=== PATIENT | male | born 1970 | race Caucasian/White ===

== ENCOUNTER 2017-08-26 18:53 | Emergency (ER) | payer BC ==
[2017-08-26 19:06] VITALS: BP 126/75; PULSE 73; TEMP 98.3; BMI 32.8
--- NOTE | 2017-08-26 20:58 | PDOC ---
History of Present Illness - General Chief Complaint: Puncture Wound Stated Complaint: WOUND Time Seen by Provider: 08/26/17 20:26 History Source: Patient Exam Limitations: No Limitations - History of Present Illness Initial Comments: 08/26/17 20:50 08/26/17 20:54 Chief complaint: Stepped on nail left foot puncture wound History of present illness: Patient is a 47-year-old male with no significant medical history here today due to having a puncture wound on his left plantar distal foot after stepping on a nail today with his work boots. Patient is not up-to-date with his tetanus. Patient went home showered and washed the area thoroughly. Patient has slight tenderness to area. Patient was able to take the nail at with any complications. Patient denies any numbness of his foot. Patient is able to move his foot at ankle and all toes without difficulty. 08/26/17 21:57 Occurred: reports: this afternoon Severity: reports: mild Pain Location: reports: lower extremity (LEFT PLANTAR DISTAL FOOT PUNCTURE WOUND FROM NAIL) Method of Injury: Yes: direct blow (BY A NAIL ) Modifying Factors: improves with: None Loss of Consciousness: no loss of consciousness Associated Symptoms (Fall): denies symptoms Past History - Past Medical History Allergies/Adverse Reactions: Allergies Allergy/AdvReac Type Severity Reaction Status Date / Time No Known Allergies Allergy Verified 08/26/17 19:05 Home Medications: Ambulatory Orders Cephalexin Monohydrate [Keflex -] 500 mg PO Q6H #27 capsule 08/26/17 Other medical history: DENIES. - Suicide/Smoking/Psychosocial Hx Smoking History: Never smoked Hx Alcohol Use: No Drug/Substance Use Hx: No Substance Use Type: None Review of Systems - Review of Systems Able to Perform ROS?: Yes Constitutional: No: Symptoms Reported HEENTM: No: Symptoms Reported Respiratory: No: Symptoms reported Cardiac (ROS): No: Symptoms Reported ABD/GI: No: Symptoms Reported : No: Symptoms Reported Musculoskeletal: Yes: Joint Pain (LEFT PLANTAR FOOT DISTAL ASPECT N). No: Joint Swelling Integumentary: Yes: Other (PUNCTURE WOUND LEFT PLANTAR FOOD ) Neurological: No: Symptoms reported *Physical Exam - Vital Signs Last Vital Signs Temp Pulse Resp BP Pulse Ox 98.3 F 73 18 126/75 99 08/26/17 19:03 08/26/17 19:03 08/26/17 19:03 08/26/17 19:03 08/26/17 19:03 - Physical Exam General Appearance: Yes: Appropriately Dressed Respiratory/Chest: positive: Lungs Clear, Normal Breath Sounds Cardiovascular: positive: Regular Rhythm, Regular Rate, S1, S2 Vascular Pulses: Doralis-Pedis (L): 4+ Extremity: positive: Normal Capillary Refill, Normal Range of Motion (LEFT FOOT AND ALL TOES ), Tender (LEFT DISTAL PLANTAR FOOT ) Integumentary: positive: Other (PUNCTURE WOUND PIN POINT SIZE LEFT PLANTAR FOOT NO SURROUNDING ERYTHEMA OR EDEMA ) Neurologic: positive: Normal Response, Motor Strength 5/5 (LEFT FOOT/TOES ), Respond to painful stimul, Responsive. negative: Numbness, Sensory Deficit ( LEFT FOOT ) Medical Decision Making - Medical Decision Making 08/26/17 20:58 Patient is a 47-year-old male with no significant medical history here today due to having a puncture wound on his left plantar distal foot after stepping on a nail today with his work boots. Patient is not up-to-date with his tetanus. Patient went home showered and washed the area thoroughly. Patient has slight tenderness to area. Patient was able to take the nail at with any complications. Patient denies any numbness of his foot. Patient is able to move his foot at ankle and all toes without difficulty. PUNCTURE wound left foot nail PLAN: X-ray left foot no marylin abnormality noted tdap 0.5 ML IM NOW keflex 500 mg po now than every 6 hours for 7 days 08/26/17 21:55 08/26/17 21:58 08/26/17 21:59 *DC/Admit/Observation/Transfer Diagnosis at time of Disposition: Puncture wound of foot, left Qualifiers: Encounter type: initial encounter Qualified Code(s): S91.332A - Puncture wound without foreign body, left foot, initial encounter; S91.332A - Puncture wound without foreign body, left foot, initial encounter - Discharge Dispostion Disposition: HOME Condition at time of disposition: Stable - Patient Instructions Additional Instructions: Cleanse left foot wound daily cover with Band-Aid except at night when sleeping until healed Return to emergency room if any redness around wound or discharge from wound or increased pain You may take ibuprofen as needed as directed by javascript application developer for pain Today your tetanus diphtheria and pertussis vaccine was updated Follow-up with your primary care provider within the next couple of days Patient voiced understanding of discharge instructions and all questions were answered Plan thank you for choosing [facility] emergency room for your medical care today
[2017-08-26] MEDS ORDERED: DIPHTH,PERTUSS(ACELL),TET 0.5 ML DISP.SYRIN IM ONE (21:03)
[2017-08-26] MEDS ORDERED: CEPHALEXIN MONOHYDRATE 500 MG CAPSULE (UD) PO ONE (21:56)
[2017-08-26] MEDS ORDERED: CEPHALEXIN MONOHYDRATE 500 MG CAPSULE (UD) ONE (21:58)
== END 2017-08-26 22:01 | disposition home or self-care (01) ==
LOC: JERFT 18:53
PROC: 3E0234Z Introduction of Serum, Toxoid and Vaccine into Muscle, Percutaneous Approach (ICD-10-PCS; principal; 2017-08-26)
DX: S91.332A Puncture wound without foreign body, left foot, initial encounter (principal); W45.0XXA Nail entering through skin, initial encounter; Y93.9 Activity, unspecified; Y92.9 Unspecified place or not applicable
CPT/HCPCS: 73630-TC-LT; 90715; 99281-25

== ENCOUNTER 2018-08-09 11:23 | Day surgery (SDC) | payer OTHER, BC ==
[2018-08-09 11:39] VITALS: BMI 31.5
--- NOTE | 2018-08-09 12:53 | PDOC ---
History of Present Illness <Shaunna Bill - Last Filed: 08/09/18 13:29> - General History Source: Patient Exam Limitations: No Limitations - History of Present Illness Initial Comments: 08/09/18 13:31 Bigg Rivas is a RHD 48 year old male, with no significant past medical history , who presents to the emergency department today with a laceration on the left forearm that occured this morning. The patient explains that he accidentally cut his left forearm while working with a new chisel. The patient reports that the laceration was initially squirting out blood, so he immediately wrapped the laceration and presented to the ED. The patient notes that his most recent tetanus shot was last year. Denies any numbness or tingling. Denies any other injuries. Denies lightheadedness, dizziness. Allergies: NKDA PCP: Dr. Parikh <Sakina Stark - Last Filed: 08/09/18 13:33> - General Chief Complaint: Laceration Stated Complaint: LACERATION Time Seen by Provider: 08/09/18 11:48 Past History <Shaunna Bill - Last Filed: 08/09/18 13:29> - Past Medical History COPD: No - Suicide/Smoking/Psychosocial Hx Smoking History: Never smoked Hx Alcohol Use: No Drug/Substance Use Hx: No Substance Use Type: None <Sakina Stark - Last Filed: 08/09/18 13:33> - Past Medical History Allergies/Adverse Reactions: Allergies Allergy/AdvReac Type Severity Reaction Status Date / Time No Known Allergies Allergy Verified 08/09/18 11:39 Home Medications: Ambulatory Orders NK [No Known Home Medication] 08/09/18 Review of Systems - Review of Systems Able to Perform ROS?: Yes Comments:: 08/09/18 12:50 Constitutional: no fevers or chills. HEENT: no headache or dizziness. CVS: no cp or syncope. Resp: no sob. MUSCULOSKELETAL: No joint pain and swelling. No neck or back pain. SKIN: +laceration on the left forearm. +wound. no discharge, no rash. Hematologic: +bleeding NEUROLOGIC: No headache, dizziness, LOC or altered mental status. No weakness, numbness or tingling. All other systems reviewed and negative, or as documented in HPI. <Sakina Stark - Last Filed: 08/09/18 13:33> *Physical Exam - Vital Signs Last Vital Signs Temp Pulse Resp BP Pulse Ox 98.0 F 84 17 125/74 98 08/09/18 11:28 08/09/18 13:17 08/09/18 13:17 08/09/18 13:17 08/09/18 13:17 <Shaunna Bill - Last Filed: 08/09/18 13:29> - Vital Signs Last Vital Signs Temp Pulse Resp BP Pulse Ox 98.0 F 76 18 131/83 97 08/09/18 11:28 08/09/18 11:28 08/09/18 11:28 08/09/18 11:28 08/09/18 11:28 - Physical Exam Comments: 08/09/18 12:49 General: NAD, well appearing Vascular: 2+ DP pulses symmetric and equal. Back: no midline tenderness, no stepoffs, FROM Focused MSK/Neuro Exam notable for soft compartments, Cap refill <2 sec. Proximal and distal strength 5/5, obstetrical nurse strength 5/5 - equal and symmetric. FROM. Sensation grossly intact to light touch. Skin: color normal color, warm and well perfused. +1.5cm linear laceration to volar aspect of distal forearm, +pulsatile and squirting blood from site of bleed. <Sakina Stark - Last Filed: 08/09/18 13:33> ED Treatment Course - LABORATORY CBC & Chemistry Diagram: 08/09/18 13:00 08/09/18 13:00 - ADDITIONAL ORDERS Additional order review: 08/09/18 13:00 RBC 5.00 MCV 89.3 MCHC 34.4 RDW 13.2 MPV 9.6 Neutrophils % 57.7 Lymphocytes % 33.6 Monocytes % 5.2 Eosinophils % 2.9 Basophils % 0.6 <Shaunna Bill - Last Filed: 08/09/18 13:29> - LABORATORY CBC & Chemistry Diagram: 08/09/18 13:00 08/09/18 13:00 <Sakina Stark - Last Filed: 08/09/18 13:33> Medical Decision Making - Medical Decision Making 08/09/18 12:48 MDM: Evelyn 48 YOM no medical history presenting with left forearm laceration s/ p injury with chisel. Tdap up to date. Bleeding NOT controlled. No weakness or paresthesias. tdap up to date. no pain currently wound cleaned and evaluated, with radial arterial bleeding suspected. with squiriting and pulsatile bleed. HD stable, VS wnl and reviewed. compression dressings placed to slow down bleed, but not able to control when wounds opened up. NVI. basic labs including CBC and CMP obtained, PIV placed. txs obtained called and admit to Dr Wooten, plastics/hand consultation, will come to evaluate of complicated forearm laceration involving radial artery. to OR for operative fixation, ASU admit put in. 08/09/18 13:31 08/09/18 13:32 <Sakina Stark - Last Filed: 08/09/18 13:33> *DC/Admit/Observation/Transfer - Discharge Dispostion Decision to Admit order: Yes <Shaunna Bill - Last Filed: 08/09/18 13:29> - Discharge Dispostion Decision to Admit order: Yes Decision to Admit order Date/Time: 08/09/18 13:32 <Sakina Stark - Last Filed: 08/09/18 13:33> Diagnosis at time of Disposition: Laceration of artery, Laceration of forearm, left, complicated - Discharge Dispostion Condition at time of disposition: Fair - Referrals Referrals: Jovana Ramsey MD [Primary Care Provider] - - Patient Instructions - Post Discharge Activity
[2018-08-09 13:06] LABS: BASO % 0.6 % (0-2.0); EOS % 2.9 % (0-4.5); HEMATOCRIT 44.7 % (35.4-49); HEMOGLOBIN 15.4 GM/dL (11.7-16.9); LYMPH % 33.6 % (8-40); MCH 30.7 pg (25.7-33.7); MCHC 34.4 g/dl (32.0-35.9); MEAN CELL VOLUME 89.3 fl (80-96); MEAN PLT VOLUME 9.6 fl (7.5-11.1); MONO % 5.2 % (3.8-10.2); NEUT % 57.7 % (42.8-82.8); PLATELET COUNT 201 K/MM3 (134-434); RDW 13.2 % (11.9-15.9); WHITE BLOOD COUNT 7.6 K/mm3 (4.0-10.0)
[2018-08-09 13:35] LABS: ALBUMIN 4.7 g/dl (3.4-5.0); ANION GAP 4 MMOL/L (8-16); BLOOD UREA NITROGEN 18 mg/dL (7-18); CALCIUM 8.9 mg/dL (8.5-10.1); CHLORIDE 106 mmol/L (98-107); CO2 29 mmol/L (21-32); GLUCOSE,RANDOM 108 mg/dL (74-106); POTASSIUM 3.9 mmol/L (3.5-5.1); SODIUM 139 mmol/L (136-145)
[2018-08-09 13:40] LABS: ALK PHOS 86 U/L (45-117); BILIRUBIN,TOTAL 0.9 mg/dL (0.2-1); CREATININE 0.8 mg/dL (0.55-1.3); SGOT/AST 44 U/L (15-37); SGPT/ALT 99 U/L (13-61); TOT PROT 8.4 g/dl (6.4-8.2)
[2018-08-09] MEDS ORDERED: oxyCODONE HCL 5 MG TABLET PO PRN ×2 (13:42)
[2018-08-09] MEDS ORDERED: ONDANSETRON 4 MG/2 ML VIAL IVPUSH PRN (13:42)
[2018-08-09] MEDS ORDERED: LACTATED RINGERS SOLUTION 1,000 ML IV SCH (13:45)
[2018-08-09] MEDS ORDERED: SUCCINYLCHOLINE CHLORIDE 200 MG/10 ML VIAL ONE (13:49)
[2018-08-09] MEDS ORDERED: fentaNYL CITRATE 250 MCG/5 ML VIAL ONE (13:49)
[2018-08-09] MEDS ORDERED: PROPOFOL 20 ML ONE (13:49)
--- NOTE | 2018-08-09 13:49 | HP ---
Admitting History and Physical - Admission History of Present Illness: 48 yo male with no significant PMH presents with left radial artery laceration sustained at work with a chisel. he was seen in ED with pulsatile bleedin noted from the left wrist. schedule for an emergency surgery. History Source: Patient, Medical Record Limitations to Obtaining History: No Limitations - Smoking History Smoking history: Never smoked - Alcohol/Substance Use Hx Alcohol Use: No History of Substance Use: reports: None - Social History Usual Living Arrangement: Yes: With Spouse History of Recent Travel: No Home Medications - Allergies Allergies/Adverse Reactions: Allergies Allergy/AdvReac Type Severity Reaction Status Date / Time No Known Allergies Allergy Verified 08/09/18 11:39 - Home Medications Home Medications: Ambulatory Orders Amox-Tr/K Cl [Augmentin - 875Mg Tablet] 1 tab PO BID #14 tablet 08/09/18 Oxycodone HCl/Acetaminophen [Percocet 5/325 -] 1 tab PO Q6H #40 tab MDD 4 Review of Systems - Review of Systems Constitutional: denies: Chills, Fever Eyes: denies: Blind Spots, Recent Change in Vision HENT: denies: Difficult Swallowing, Other Cardiovascular: denies: Chest Pain, Palpitations Respiratory: denies: Cough, SOB Gastrointestinal: denies: Abdominal Pain, Constipation, Diarrhea Genitourinary: denies: Burning, Discharge, Dysuria Breasts: denies: Breast Implants, Discharge from Nipple Musculoskeletal: denies: Back Pain, Muscle Pain, Muscle Cramps, Muscle Weakness Integumentary: denies: Blister, Bruising, Change in Color Neurological: denies: Change in LOC, Seizure, Syncope Endocrine: denies: Unexplained Weight Gain, Unexplained Weight Loss Hematology/Lymphatic: denies: Easily Bruised, Excessive Bleeding Psychiatric: denies: Anxiety, Depression Physical Examination Vital Signs: Vital Signs Temperature 98.0 F 08/09/18 11:28 Pulse Rate 84 08/09/18 13:17 Respiratory Rate 17 08/09/18 13:17 Blood Pressure 125/74 08/09/18 13:17 O2 Sat by Pulse Oximetry (%) 98 08/09/18 13:17 Constitutional: Yes: Well Nourished, No Distress, Calm Eyes: Yes: Conjunctiva Clear, EOM Intact HENT: Yes: Atraumatic, Normocephalic Neck: Yes: Supple, Trachea Midline Cardiovascular: Yes: Regular Rate and Rhythm, S1, S2 Respiratory: Yes: Regular, CTA Bilaterally Gastrointestinal: Yes: Normal Bowel Sounds, Soft ...Rectal Exam: Yes: Deferred Renal/: No: CVA Tenderness - Left, CVA Tenderness - Right Musculoskeletal: No: Joint Stiffness, Muscle Pain, Muscle Weakness Extremities: No: Cool, Cyanosis Edema: No Peripheral Pulses WNL: No Peripheral Pulses: Left Radial: 0, Right Radial: 2+, Left Doralis Pedis: 2+, Right Dorsalis Pedis: 2+, Left Femoral: 2+, Right Femoral: 2+ Integumentary: No: Bruising, Jaundice, Onychomycosis Wound/Incision: Yes: Clean/Dry, Open to air, Bleeding (pulsatile bleeding left wrist volar lacertion 2 cm zone 5 radial aspect), Unapproximated Neurological: Yes: Alert, Oriented Psychiatric: Yes: Alert, Oriented Labs: CBC, BMP 08/09/18 13:00 Problem List - Problems (1) Laceration of artery Assessment/Plan: 48yo male with Left wrist radial artery laceration, pressure applied to limit blood loss NPO and IVF ressucitation IV antibitics OR for left wrist radial artery repair versus ligation Discussed with patient risks, benefits and alternatives of aforementioned procedure, including but not limited to bleeding, infection, injury to adjacent structures, need for further procedures, ; alternatives include antibiotics , delayed or no surgery - risks of this include failure of nonoperative therapy , exsanguination , . Patient desires to proceed with operation - will take to OR for above. Informed consent signed for same. Thank you for the opportunity to participate in the care of this patient. Code(s): T14.8XXA - OTHER INJURY OF UNSPECIFIED BODY REGION, INITIAL ENCOUNTER (2) Radial artery injury Code(s): S55.109A - UNSP INJURY OF RADIAL ARTERY AT FORARM LV, UNSP ARM, INIT Qualifiers: Encounter type: initial encounter Laterality: left Qualified Code(s): S55.102A - Unspecified injury of radial artery at forearm level, left arm, initial encounter (3) Injury of radial artery at left forearm level Code(s): S55.102A - UNSP INJURY OF RADIAL ARTERY AT FORARM LV, LEFT ARM, INIT Qualifiers: Encounter type: initial encounter Qualified Code(s): S55.102A - Unspecified injury of radial artery at forearm level, left arm, initial encounter (4) Laceration of wrist Code(s): S61.519A - LACERATION WITHOUT FOREIGN BODY OF UNSP WRIST, INIT ENCNTR Qualifiers: Encounter type: initial encounter Laterality: left Qualified Code(s): S61.512A - Laceration without foreign body of left wrist, initial encounter
[2018-08-09] MEDS ORDERED: MIDAZOLAM HCL 2 MG/2 ML SINGLE DOSE VIAL ONE (13:50)
[2018-08-09] MEDS ORDERED: ROCURONIUM BROMIDE 50 MG/5 ML VIAL ONE (13:50)
[2018-08-09] MEDS ORDERED: LIDOCAINE HCL/PF 2% SDV 5ML VIAL ONE (13:51)
[2018-08-09] MEDS ORDERED: DEXAMETHASONE SOD PHOSPHATE 4 MG/1 ML VIAL ONE (13:51)
[2018-08-09] MEDS ORDERED: ceFAZolin SODIUM 1 GM VIAL IVPB ONE (14:22)
[2018-08-09] MEDS ORDERED: ceFAZolin SODIUM 1 GM VIAL ONE (14:25)
--- NOTE | 2018-08-09 15:33 | OP ---
Operative Note - Note: Operative Date: 08/09/18 Pre-Operative Diagnosis: left radial artery laceration Operation: Repair of left radial artery Findings: laceration of left radial artery 30% laceration Post-Operative Diagnosis: Same as Pre-op Surgeon: Jamari Wooten Anesthesiologist/INFORMATION SECURITY ENGINEER: Charly Germain Anesthesia: General Estimated Blood Loss (mls): 5 Fluid Volume Replaced (mls): 250 Operative Report Dictated: Yes
--- NOTE | 2018-08-09 15:45 | DS ---
Physical Examination Vital Signs: Vital Signs Temperature 98.0 F 08/09/18 11:28 Pulse Rate 84 08/09/18 13:17 Respiratory Rate 17 08/09/18 13:17 Blood Pressure 125/74 08/09/18 13:17 O2 Sat by Pulse Oximetry (%) 98 08/09/18 13:17 Vital Signs Period Temp Pulse Resp BP Sys/Almanza Pulse Ox Last 24 Hr 98.0 F 76-84 17-18 125-131/74-83 97-98 Findings/Remarks: He has been hemodynamically stable postoperatively. Tolerating diet. Constitutional: Yes: Well Nourished, No Distress, Calm Eyes: Yes: Conjunctiva Clear, EOM Intact HENT: Yes: Atraumatic, Normocephalic Neck: Yes: Supple, Trachea Midline Cardiovascular: Yes: Regular Rate and Rhythm, S1, S2 Respiratory: Yes: Regular, CTA Bilaterally Gastrointestinal: Yes: Normal Bowel Sounds, Soft ...Rectal Exam: Yes: Deferred Renal/: No: CVA Tenderness - Left, CVA Tenderness - Right Edema: No Peripheral Pulses WNL: No Peripheral Pulses: Left Radial: 2+, Right Radial: 2+, Left Doralis Pedis: 2+, Right Dorsalis Pedis: 2+, Left Femoral: 2+, Right Femoral: 2+ Integumentary: No: Incision, Jaundice, Pressure Ulcer Wound/Incision: Yes: Clean/Dry, Well Approximated, Dressing Dry and Intact Neurological: Yes: Alert, Oriented Psychiatric: Yes: Alert, Oriented Labs: CBC, BMP 08/09/18 13:00 08/09/18 13:00 Discharge Summary Reason For Visit: LACERATION OF ARTERY Current Active Problems Laceration of artery (Acute) Procedures: Principal: left radial artery repair Other Procedures: laceretion repair of left radial artery Hospital Course: Present to the ED with a work related trauma. Taken to the OR for emergency surgery. Stable postop for discharge home. Condition: Improved - Instructions Diet, Activity, Other Instructions: Postoperative instructions: You had a left radial artery repair on 08/09/[address] Jamari Wooten of [facility]. Activity: Resume your usual activities gradually, but no heavy exertion or lifting more than 10-15 pounds for 4-6 weeks. Remove dressings 1 week after surgery. You may shower daily starting then, just pat the incision areas dry. No bath or swimming until skin incisions have healed. Carlitos should not need to be recovered with any dressings, unless you have been told otherwise. Eat lightly at first, but advance to your usual diet as tolerated. Pain: For pain, you may use and alternate Tylenol (acetaminophen) 1-2 pills and/ or ibuprofen 200 mg (1-3 pills) every 6 hours each as needed; this means that you can take one OR the other at 3-hour intervals. If you are prescribed a Tylenol/narcotic combination for severe pain, use it instead of plain Tylenol as needed and switch back when your pain starts decreasing. Do not take more than 4000 mg of acetaminophen in a day. Take medications as prescribed or indicated on the labeling. Follow-up: Call Dr. Mcneal's office at [phone] to make your postop appointment (Tuesday in approximately 2 weeks after surgery as advised). Clinic is held in the [facility] on the first floor of [facility]. Call the office if you have: * increasing pain not responsive to pain medication * fever of 101F or higher * unusual or increasing bleeding or drainage from wounds * increasing redness or swelling at wound sites Also, see your primary medical doctor within 1-2 weeks. Referrals: Jovana Ramsey MD [Primary Care Provider] - Disposition: HOME - Home Medications Comprehensive Discharge Medication List: Ambulatory Orders Amox-Tr/K Cl [Augmentin - 875Mg Tablet] 1 tab PO BID #14 tablet 08/09/18 Oxycodone HCl/Acetaminophen [Percocet 5/325 -] 1 tab PO Q6H #40 tab MDD 4
[2018-08-09 16:17] VITALS: TEMP 97.7
[2018-08-09 17:59] VITALS: BP 131/85; PULSE 62
== END 2018-08-09 17:55 | disposition home or self-care (01) ==
LOC: JER 11:23 → JASUSAT 13:30
CPT/HCPCS: 36415; 80053; 85025; 86850; 86900; 86901; 94760; 99284-25

== ENCOUNTER 2024-01-29 20:55 | Emergency (ER) | payer BC ==
[2024-01-29 21:17] VITALS: BP 123/76; PULSE 77; RESP 18; TEMP 98.6; BMI 29.2
[2024-01-29] MEDS ORDERED: DIPHTH,PERTUSS(ACELL),TET 0.5 ML DISP.SYRIN IM ONE (22:28)
[2024-01-29] MEDS: TETANUS AND DIPHTHERIA TOXOID 0.5 ML DISP.SYRIN IM ONE (22:31)
== END 2024-01-29 22:32 | disposition home or self-care (01) ==
LOC: JERFT 20:55
PROC: 3E0234Z Introduction of Serum, Toxoid and Vaccine into Muscle, Percutaneous Approach (ICD-10-PCS; principal; 2024-01-29)
DX: S61.552A Open bite of left wrist, initial encounter (principal); W55.01XA Bitten by cat, initial encounter; Y92.009 Unspecified place in unspecified non-institutional (private) residence as the place of occurrence of the external cause
CPT/HCPCS: 99283-25